=== PATIENT | female | born 1950 | race Caucasian/White ===

== ENCOUNTER 2016-11-24 11:29 | Observation (INO) | payer MEDICARE, OTHER ==
[~2016-11-24] VITALS: Ht 163.8 cm; Wt 84.1 kg
[~2016-11-24 11:29] MED LIST: BUPIVACAINE LIPOSOME PF 1.3% 20 ML VIAL ONE
[2016-11-24] MEDS ORDERED: NEOSTIGMINE 3 MG/3 ML SYR IV ONE (12:00)
[2016-11-24] MEDS ORDERED: ONDANSETRON HCL 4 MG/2 ML VIAL IV PUSH ONE (12:00)
[2016-11-24] MEDS ORDERED: OMEP40CA2 PO (12:00)
[2016-11-24] MEDS ORDERED: PROPOFOL 200 MG/20 ML AMP IV ONE (12:00)
[2016-11-24] MEDS ORDERED: ATOR40TA16 PO (12:00)
[2016-11-24] MEDS ORDERED: PHENYLEPH/NS 1000 MCG/10 ML SYR IV ONE (12:00)
[2016-11-24] MEDS ORDERED: HYDR12.57 PO (12:00)
[2016-11-24] MEDS ORDERED: LACTATED RINGER'S 1000 ML INJ 1,000 ML IV ONE (12:00)
[2016-11-24] MEDS ORDERED: KETOROLAC TROMETHAMINE 60 MG/2 ML (IM) VIAL IM ONE (12:00)
[2016-11-24] MEDS ORDERED: BUPIVACAINE/EPINEPHRINE 0.25% 50 ML VIAL ONE (12:03)
[2016-11-24] MEDS ORDERED: VANCOMYCIN HCL 1000 MG VIAL ONE (12:16)
[2016-11-24] MEDS ORDERED: SODIUM CHLOR 0.9% 250 ML INJ 250 ML ONE (12:16)
[2016-11-24 12:30] LABS: AUTOMATED NEUTROPHIL # 4.1 TH/MM3 (1.8-7.7); BASOPHIL % 0.4 % (0.0-2.0); EOSINOPHIL # 0.2 TH/MM3 (0-0.4); EOSINOPHIL % 2.8 % (0.0-4.0); HEMATOCRIT 40.2 % (35.0-46.0); HEMO FLAGS DIFF FINAL; LYMPH % 28.5 % (9.0-44.0); MEAN CELL VOLUME 89.8 FL (80.0-100.0); MEAN CORPUSCULAR HEMOGLOBIN 29.6 PG (27.0-34.0); MONO % 8.8 % (0.0-8.0); NEUT % 59.5 % (16.0-70.0); PLATELET COUNT 209 TH/MM3 (150-450); RED BLOOD COUNT 4.48 MIL/MM3 (4.00-5.30); RED CELL DISTRIBUTION WIDTH 13.4 % (11.6-17.2); WHITE BLOOD COUNT 6.9 TH/MM3 (4.0-11.0)
[2016-11-24] MEDS ORDERED: diphenhydrAMINE HCL 50 MG/ML VIAL ONE (13:05)
[2016-11-24] MEDS ORDERED: FAMOTIDINE 20 MG/2 ML VIAL ONE (13:07)
[2016-11-24] MEDS ORDERED: CHLORHEXIDINE GLUCONATE 2 % 1 PACK (2 CLOTHS) TOPICAL PRN (13:15)
[2016-11-24] MEDS ORDERED: METOPROLOL TARTRATE 25 MG TAB PO PRN (13:15)
[2016-11-24] MEDS ORDERED: VANCOMYCIN HCL 1000 MG ON-CALL/NS 250 ML IV SCH ×2 (13:15)
[2016-11-24] MEDS ORDERED: INSULIN HUMAN REGULAR 1,000 UNITS/10 ML VIAL SQ PRN (13:15)
[2016-11-24] MEDS ORDERED: POVIDONE IODINE 5% (ANTISEPSIS KIT) 4 APPLICATIONS EACH NARE PRN (13:15)
[2016-11-24] MEDS ORDERED: SODIUM CHLORID 0.9% 500 ML IV PRN (13:15)
[2016-11-24] MEDS ORDERED: LACTATED RINGER'S 1000 ML IV PRN (13:15)
[2016-11-24 13:19] LABS: BICARBONATE 27.7 MEQ/L (21.0-32.0); POTASSIUM 3.9 MEQ/L (3.5-5.1)
[2016-11-24] MEDS ORDERED: ACETAMINOPHEN 1000 MG/100 ML 100 ML IV ONE (14:04)
[2016-11-24] MEDS ORDERED: oxyCODONE/ACETAMINOPHEN 5 MG/325 MG TAB PO ONE (15:00)
[2016-11-24] MEDS ORDERED: ONDANSETRON HCL 4 MG/2 ML VIAL IV PUSH PRN (15:00)
--- NOTE | 2016-11-24 15:02 | HHI.PR ---
Immediate Post Op Note Procedure Date: Nov 24, 2016 Pre Op Diagnosis: ventral hernia Post Op Diagnosis: same Surgeon: Kailash Mcqueen MD Fitness Floor Attendant(s): see or sheet Procedure: lap ventral hernia repair Findings: incarcerated omental fat Complications: none Specimen(s) removed: hernia sac Estimated blood loss: 10cc Anesthesia: General Drains: None IVF (1200) Patient to: PACU Patient Condition: Good Kailash Mcqueen MD Nov 24, 2016 15:02
[2016-11-24] MEDS: SODIUM CHLOR 0.9% 1000 ML INJ 1,000 ML IV SCH (15:07)
[2016-11-24] MEDS ORDERED: DO NOT ADM ANY ANTICOAGULANT DRUGS PRN (15:11)
[2016-11-24] MEDS ORDERED: KETOROLAC TROMETHAMINE 30 MG/ML (IVP) VIAL IVP PRN (15:15)
[2016-11-24] MEDS ORDERED: ONDANSETRON HCL 4 MG/2 ML VIAL IV PRN (15:15)
[2016-11-24] MEDS ORDERED: SODIUM CHLORIDE 0.9% FLUSH 10 ML FLUSH IV FLUSH PRN (15:15)
[2016-11-24] MEDS ORDERED: ACETAMINOPHEN/HYDROcodone 325 MG/5 MG TAB PO PRN (15:15)
[2016-11-24] MEDS ORDERED: Post-op Orders (for Pharmacy) MISC XX ONE (15:15)
[2016-11-24] MEDS ORDERED: HYDROmorphone HCL PF 1 MG/ML VIAL IV PRN (15:15)
[2016-11-24 17:00] VITALS: BP 137/74; PULSE 70; RESP 20; TEMP 96.9; O2SAT 94
[2016-11-24 20:00] VITALS: BP 138/71; PULSE 70; RESP 16; TEMP 97; O2SAT 94
[2016-11-24] MEDS: DOCUSATE SODIUM 100 MG CAP PO SCH (21:17)
[2016-11-24] MEDS: SODIUM CHLORIDE 0.9% FLUSH 10 ML FLUSH IV FLUSH SCH (21:17)
--- NOTE | 2016-11-24 22:17 | MP ---
cc: JOSH MCQUEEN MD DATE OF SURGERY 11/24/2016 PREOPERATIVE DIAGNOSIS Incarcerated ventral hernia. POSTOPERATIVE DIAGNOSIS Incarcerated ventral hernia. PROCEDURE PERFORMED Laparoscopic hernia repair. SURGEON Dr. Josh Mcqueen RELAY TELEGRAPHER Dr. Marc Corado assisted due to the complexity of the laparoscopic case. Dr. Corado was necessary for retraction and camera control. ANESTHESIA GETA. IV FLUIDS 1200 mL. ESTIMATED BLOOD LOSS 5 mL. DRAINS None. COMPLICATIONS NONE. WOUND CLASSIFICATION Clean. FINDINGS Hernia defect able to reduce omentum from the hernia defect. SPECIMEN Hernia sac. INDICATION The patient is a 66-year-old female who presents with long history of ventral hernia. She states hernia has been there for many, many years and developed progressively in size over time. Decision was made for operative repair. Discussed in detail decided after reviewing CT scan for laparoscopic repair. PROCEDURE IN DETAIL The patient is taken to the operating suite, placed in supine position. She was prepped and draped in usual sterile fashion after induction of general endotracheal anesthesia. Brief time-out done stating correct patient, procedure and surgical site. We were all in agreement with this. Attention first directed to the left upper quadrant where a stab shira incision was made after injection of local anesthetic. A Veress needle placed, intra-abdominal placement confirmed with saline drop test. Abdomen insufflated to 50 mm pneumoperitoneum. The Veress needle was changed for a 5-mm scope with a Visiport. On cursory inspection no evidence of injury. Two other ports placed, one left mid quadrant followed by a left lower quadrant both 5 mm. The left mid quadrant was changed to a 12 mm port. Hernia was identified and noted the omentum incarcerated in the hernia. This was reduced. Electro Bovie cautery used to incise the hernia sac in its entirety from the cavity. The hernia sac was removed from the 12 port. The ligamentum teres was taken down with electro Bovie cautery in order to instill adequate fascial purchase of the mesh. A 10 x 15 [employer] mesh was used and rolled up after preseated [employer] sutures were placed at four corners. The hernia defect prior to mesh placement was closed with a #1 Stratafix nonabsorbable in two layers. Next the mesh was then placed intra-abdominally intact to four quadrants, 12 o'clock, 3 o'clock, 6 o'clock, 9 o'clock positions. These were done through separate four corner stab incisions after identification with injector needle at distance from hernia sac. The mesh noted to be seating appropriately and nice and taut. Once this was done suture tacker was used for the periphery in order to tack the outer edge of the mesh to the abdominal wall. Next the suture passer was used to close the 12 mm port. The abdomen was then desufflated. All lap and instrument counts were correct at the end of the procedure. No intraoperative complications. The patient tolerated the procedure well. The patient was extubated and taken stable to the PACU. Size of the hernia defect approximately 2.5 x 2.5 cm neck and a 9 x 5 cm mushroom hernia defect. MD FIDEL Malcolm/MASSIEL /7:12 PM /9:50 PM
[2016-11-25] VITALS: BP 136/69; PULSE 78; RESP 16; TEMP 96.1; O2SAT 92
[2016-11-25] MEDS ORDERED: VANCOMYCIN INJ 1,000 MG in SODIUM CHLOR 0.9% 250 ML INJ 250 ML IV SCH ×2
[2016-11-25] MEDS: SODIUM CHLOR 0.9% 1000 ML INJ 1,000 ML IV SCH (00:04)
[2016-11-25 04:00] VITALS: BP 131/67; PULSE 69; RESP 16; TEMP 96.4; O2SAT 92
[2016-11-25 05:57] VITALS: O2SAT 94
[2016-11-25 06:00] LABS: BICARBONATE 24.8 MEQ/L (21.0-32.0); POTASSIUM 4.1 MEQ/L (3.5-5.1)
[2016-11-25 06:10] LABS: AUTOMATED NEUTROPHIL # 10.2 TH/MM3 (1.8-7.7); BASOPHIL # 0.1 TH/MM3 (0-0.2); BASOPHIL % 0.7 % (0.0-2.0); EOSINOPHIL % 0.1 % (0.0-4.0); HEMATOCRIT 35.6 % (35.0-46.0); HEMO FLAGS DIFF FINAL; LYMPH % 8.5 % (9.0-44.0); MEAN CELL VOLUME 88.9 FL (80.0-100.0); MEAN CORPUSCULAR HEMOGLOBIN 30.3 PG (27.0-34.0); MEAN CORPUSCULAR HGB CONC 34.1 % (32.0-36.0); MONO % 4.9 % (0.0-8.0); NEUT % 85.8 % (16.0-70.0); PLATELET COUNT 156 TH/MM3 (150-450); RED CELL DISTRIBUTION WIDTH 13.3 % (11.6-17.2); WHITE BLOOD COUNT 11.9 TH/MM3 (4.0-11.0)
--- NOTE | 2016-11-25 07:51 | HHI.PR ---
Subjective Subjective Notes no acute issues, oob pain controlled no nausea Objective Vitals/I&O Vital Signs Date Time Temp Pulse Resp B/P (MAP) Pulse Ox O2 Delivery O2 Flow Rate FiO2 11/25/16 05:57 94 11/25/16 04:00 96.4 69 16 131/67 (88) 11/24/16 16:45 Nasal Cannula 2 Labs Laboratory Tests Test 11/24/16 11:55 11/25/16 05:05 White Blood Count 6.9 11.9 Red Blood Count 4.48 4.00 Hemoglobin 13.3 12.1 Hematocrit 40.2 35.6 Mean Corpuscular Volume 89.8 88.9 Mean Corpuscular Hemoglobin 29.6 30.3 Mean Corpuscular Hemoglobin Concent 33.0 34.1 Red Cell Distribution Width 13.4 13.3 Platelet Count 209 156 Mean Platelet Volume 10.4 11.4 Neutrophils (%) (Auto) 59.5 85.8 Lymphocytes (%) (Auto) 28.5 8.5 Monocytes (%) (Auto) 8.8 4.9 Eosinophils (%) (Auto) 2.8 0.1 Basophils (%) (Auto) 0.4 0.7 Neutrophils # (Auto) 4.1 10.2 Lymphocytes # (Auto) 2.0 1.0 Monocytes # (Auto) 0.6 0.6 Eosinophils # (Auto) 0.2 0.0 Basophils # (Auto) 0.0 0.1 CBC Comment DIFF FINAL DIFF FINAL Differential Comment Blood Urea Nitrogen 15 11 Creatinine 0.70 0.77 Random Glucose 80 121 Calcium Level 8.8 8.0 Sodium Level 142 140 Potassium Level 3.9 4.1 Chloride Level 107 105 Carbon Dioxide Level 27.7 24.8 Anion Gap 7 10 Estimat Glomerular Filtration Rate 84 75 Hematology Comments Cardiovascular: Regular Lungs: Clear Abdomen: Other (soft incisional tenderness) A/P Assessment and Plan POD 1 Lap ventral hernia PLAN OOB Reg diet pain control d/c home Kailash Mcqueen MD Nov 25, 2016 07:51
[2016-11-25 08:00] VITALS: BP 134/73; PULSE 64; RESP 16; TEMP 97.8; O2SAT 93
[2016-11-25] MEDS: SODIUM CHLORIDE 0.9% FLUSH 10 ML FLUSH IV FLUSH SCH (09:00)
[2016-11-25] MEDS: DOCUSATE SODIUM 100 MG CAP PO SCH (09:35)
--- NOTE | 2016-11-25 13:39 | EKG ---
Date Performed: 11/24/2016 Time Performed: 12:04:39 PTAGE: 66 years EKG: Sinus rhythm BORDERLINE LEFT AXIS DEVIATION LOW QRS VOLTAGE IN PRECORDIAL LEADS BORDERLINE ECG NO PREVIOUS TRACING DOCTOR: John Rangel Interpretating Date/Time 11/25/2016 13:37:52
== END 2016-11-25 11:19 | disposition home or self-care (01) ==
LOC: HSDC 11:29 → HSDI 15:09 → N07A 17:21
PROVIDERS: ADMIT Surgery; ATTEND Surgery
DX: K43.6 Other and unspecified ventral hernia with obstruction, without gangrene (principal); I10 Essential (primary) hypertension; E78.5 Hyperlipidemia, unspecified; R94.31 Abnormal electrocardiogram [ECG] [EKG]
CPT/HCPCS: 00750; 49653; 64486; 80048; 85025; 88302; 93005; 94150; 96361; 96365; C1781; G0378; J0131; J1200; J1885; J2370; J2405; J2710; J3010; J3370; J7030; J7050; J7120; C9290